=== PATIENT | male | born 1990 | race Caucasian/White ===

== ENCOUNTER 2021-04-25 13:33 | Emergency (ER) | payer OTHER ==
[~2021-04-25] VITALS: Ht 180.3 cm; Wt 75.0 kg
[2021-04-25] MEDS ORDERED: TRAMADOL 50MG TABLET PO ONE (15:15)
[2021-04-25] MEDS ORDERED: IBUP-2030 MT (16:45)
[2021-04-25] MEDS ORDERED: TRAM50TA3 MT (16:45)
[2021-04-25 17:21] VITALS: BP 150/90
== END 2021-04-25 17:22 | disposition home or self-care (01) ==
LOC: ER 13:33
DX: M25.562 Pain in left knee (principal); X50.0XXA Overexertion from strenuous movement or load, initial encounter; R03.0 Elevated blood-pressure reading, without diagnosis of hypertension; Y93.89 Activity, other specified; Y92.89 Other specified places as the place of occurrence of the external cause; Y99.0 Civilian activity done for income or pay
CPT/HCPCS: 73562; 73590; 99284; L1830